=== PATIENT | male | born 1940 | race Caucasian/White ===

== ENCOUNTER 2017-06-19 18:09 | Inpatient (IN) | payer OTHER ==
[~2017-06-19] VITALS: Ht 170.2 cm; Wt 85.5 kg
[2017-06-19 18:16] VITALS: Ht 170.2 cm; Wt 85.5 kg
[2017-06-19 22:01] LABS: BASOPHIL % 0.4 % (0-2); PLATELET COUNT 327 x10^3mcL (130-400)
[2017-06-19 22:11] LABS: CALCIUM 8.4 mg/dL (8.5-10.1); CARBON DIOXIDE 26.9 mmol/L (21-32); CHLORIDE SERUM 93 mmol/L (98-107); CREATININE SERUM 0.9 mg/dL (0.7-1.3); GLUCOSE SERUM 110 mg/dL (74-106); POTASSIUM SERUM 3.6 mmol/L (3.5-5.1); SODIUM SERUM 128 mmol/L (136-145)
[2017-06-19 22:14] LABS: MAGNESIUM 1.4 mg/dL (1.8-2.4); PHOSPHOROUS 3.4 mg/dL (2.5-4.9)
[2017-06-19] MEDS ORDERED: METFORMIN HYDR500 M1 (22:15)
[2017-06-19] MEDS ORDERED: LISINOPRIL2.5 MG (22:15)
[2017-06-19] MEDS ORDERED: PAXIL10 MG (22:16)
[2017-06-19] MEDS ORDERED: LOVASTATIN20 MG (22:16)
[2017-06-19] MEDS ORDERED: LORAZEPAM0.5 MG (22:16)
[2017-06-19] MEDS ORDERED: GOOD SENSE ASPI81 M3 (22:17)
[2017-06-19 22:18] LABS: RED CELL DISTRIBUTION WIDTH 15.9 % (11.5-14.5)
[2017-06-20] VITALS (7 sets, daily range): BP systolic 101–146; BP diastolic 48–86
[2017-06-20] MEDS ORDERED: LOVASTATIN40 MG PO (00:31)
[2017-06-20] MEDS ORDERED: FLUOCINONIDE0.05% TOP (00:32)
[2017-06-20] MEDS ORDERED: CETIRIZINE HYDR10 MG PO (00:33)
[2017-06-20] MEDS ORDERED: METFORMIN HCL500 MG PO (00:33)
[2017-06-20] MEDS ORDERED: PAROXETINE HCL20 M1 PO (00:36)
[2017-06-20] MEDS ORDERED: HCTZ/LISINOPRIL1 TA2 PO (00:36)
[2017-06-20] MEDS ORDERED: DOXAZOSIN MESYLA4 MG PO (00:37)
[2017-06-20 01:57] LABS: FREE T4 1.44 ng/dL (0.76-1.46); FREE THYROXINE INDEX 3.4 ug/dL (1.4-4.5); T4(THYROXINE) 8.6 ug/dL (4.7-13.3)
[2017-06-20 02:21] LABS: CARBON DIOXIDE 28.4 mmol/L (21-32); CHLORIDE SERUM 94 mmol/L (98-107); CREATININE SERUM 0.9 mg/dL (0.7-1.3); GLUCOSE SERUM 172 mg/dL (74-106); POTASSIUM SERUM 3.3 mmol/L (3.5-5.1); SODIUM SERUM 129 mmol/L (136-145)
[2017-06-20 02:25] LABS: ALKALINE PHOSPHATASE 54 U/L (46-116); ALT/SGPT 18 U/L (16-63); AST/SGOT 25 U/L (15-37); BILIRUBIN TOTAL 0.34 mg/dL (0.20-1.00); TOTAL PROTEIN, SERUM 6.4 g/dL (6.4-8.2)
[2017-06-20 02:27] LABS: ALBUMIN 2.7 g/dL (3.4-5.0)
[2017-06-20 03:14] LABS: CHOLESTEROL/HDL RATIO 1.6
[2017-06-20 03:34] LABS: T3 TOTAL 1.09 ng/mL
[2017-06-20 06:01] LABS: microscopic required? NO
[2017-06-20 06:12] LABS: urine erythrocyte NEGATIVE (NEGATIVE)
[2017-06-20 06:40] LABS: BASOPHIL % 0.6 % (0-2); PLATELET COUNT 315 x10^3mcL (130-400)
[2017-06-20 07:07] LABS: RED CELL DISTRIBUTION WIDTH 15.8 % (11.5-14.5)
[2017-06-20 07:18] LABS: CALCIUM 8.2 mg/dL (8.5-10.1); CARBON DIOXIDE 24.7 mmol/L (21-32); CHLORIDE SERUM 96 mmol/L (98-107); CREATININE SERUM 0.7 mg/dL (0.7-1.3); GLUCOSE SERUM 131 mg/dL (74-106); MAGNESIUM 1.9 mg/dL (1.8-2.4); POTASSIUM SERUM 4.1 mmol/L (3.5-5.1); SODIUM SERUM 129 mmol/L (136-145)
[2017-06-20 07:37] LABS: AMPHETAMINE QUAL UR NONE DETECTED (NEG <=1000)
[2017-06-20 14:59] LABS: CALCIUM 7.8 mg/dL (8.5-10.1); CARBON DIOXIDE 25.3 mmol/L (21-32); CHLORIDE SERUM 96 mmol/L (98-107); CREATININE SERUM 0.7 mg/dL (0.7-1.3); GLUCOSE SERUM 171 mg/dL (74-106); POTASSIUM SERUM 3.8 mmol/L (3.5-5.1); SODIUM SERUM 130 mmol/L (136-145)
[2017-06-20] MEDS ORDERED: COZ50 PO (15:28)
[2017-06-20] MEDS ORDERED: THERA TABS1 TAB PO (15:28)
[2017-06-20 17:54] LABS: RED BLOOD CELLS 3.95 M/mm3 (4.52-5.90)
[2017-06-20 18:37] LABS: IRON 65 ug/dL (65-170); TOTAL IRON BINDING CAPACITY 291 ug/dL (250-450)
[2017-06-21 05:48] VITALS: BP 130/73
[2017-06-21 07:49] LABS: BASOPHIL % 0.5 % (0-2); PLATELET COUNT 325 x10^3mcL (130-400)
[2017-06-21 07:55] LABS: RED CELL DISTRIBUTION WIDTH 14.6 % (11.5-14.5)
[2017-06-21 08:22] LABS: CALCIUM 8.1 mg/dL (8.5-10.1); CARBON DIOXIDE 24.4 mmol/L (21-32); CHLORIDE SERUM 97 mmol/L (98-107); CREATININE SERUM 0.7 mg/dL (0.7-1.3); GLUCOSE SERUM 140 mg/dL (74-106); MAGNESIUM 1.4 mg/dL (1.8-2.4); PHOSPHOROUS 2.9 mg/dL (2.5-4.9); POTASSIUM SERUM 4.2 mmol/L (3.5-5.1); SODIUM SERUM 128 mmol/L (136-145)
[2017-06-21 09:45] VITALS: BP 139/76
[2017-06-21 12:09] VITALS: BP 128/73
[2017-06-21 14:39] LABS: CALCIUM 8.4 mg/dL (8.5-10.1); CHLORIDE SERUM 96 mmol/L (98-107); CREATININE SERUM 0.8 mg/dL (0.7-1.3); GLUCOSE SERUM 153 mg/dL (74-106); POTASSIUM SERUM 3.9 mmol/L (3.5-5.1); SODIUM SERUM 130 mmol/L (136-145)
[2017-06-21 14:58] VITALS: BP 128/73
[2017-06-21] MEDS ORDERED: BENADRYL ALLERG25 MG PO (15:45)
[2017-06-21] MEDS ORDERED: SIN10 PO (15:45)
[2017-06-21] MEDS ORDERED: SOD1 PO (15:48)
== END 2017-06-21 16:49 | disposition home health service (06) | DRG 643 ==
LOC: ED 18:09 → DU 22:58 → EDBEDREQSVC 23:00 → EDBEDREQ 23:00 → DU 23:30
PROVIDERS: Emergency Medicine; ADMIT Family Medicine
DX: E22.2 Syndrome of inappropriate secretion of antidiuretic hormone (principal); E43 Unspecified severe protein-calorie malnutrition; I50.43 Acute on chronic combined systolic (congestive) and diastolic (congestive) heart failure; D68.69 Other thrombophilia; E86.0 Dehydration; E83.42 Hypomagnesemia; E11.9 Type 2 diabetes mellitus without complications; E11.51 Type 2 diabetes mellitus with diabetic peripheral angiopathy without gangrene; E83.51 Hypocalcemia; N40.0 Benign prostatic hyperplasia without lower urinary tract symptoms; F41.9 Anxiety disorder, unspecified; I10 Essential (primary) hypertension; R23.8 Other skin changes; L29.8 Other pruritus; B35.1 Tinea unguium; F10.20 Alcohol dependence, uncomplicated; F32.9 Major depressive disorder, single episode, unspecified; E87.8 Other disorders of electrolyte and fluid balance, not elsewhere classified; Z68.29 Body mass index [BMI] 29.0-29.9, adult; Z87.891 Personal history of nicotine dependence; Z79.84 Long term (current) use of oral hypoglycemic drugs
CPT/HCPCS: 82962; 83880; 84439; J1200; J1940; J3475; J7512; Q0092